=== PATIENT | male | born 2000 | race Two or more races ===

== ENCOUNTER 2022-05-14 17:53 | Emergency (ER) | payer OTHER ==
[~2022-05-14] VITALS: Ht 188 cm; Wt 95.0 kg
[2022-05-14 20:18] VITALS: BP 131/74
== END 2022-05-14 20:22 | disposition home or self-care (01) ==
LOC: EEVIPCON 17:56 → ER 17:56
DX: S43.401A Unspecified sprain of right shoulder joint, initial encounter (principal); W18.39XA Other fall on same level, initial encounter; Y93.61 Activity, american tackle football; Y92.89 Other specified places as the place of occurrence of the external cause; Y99.8 Other external cause status
CPT/HCPCS: 73030